=== PATIENT | female | born 1975 | race Hispanic/Latino ===

== ENCOUNTER → 2016-11-11 | Outpatient (CLI) | payer OTHER ==
--- NOTE | 2016-11-11 14:11 | Diagnostic Imaging Report ---
EXAMINATION: Bilateral diagnostic mammogram with a Computer Aided Detection (CAD) system. INDICATION: Bilateral breast pain. COMPARISON: 11/15/2015. FINDINGS: The breasts are composed of extremely dense parenchyma which would decrease mammographic sensitivity. There is an asymmetry in the upper aspect of the left breast. This was evaluated with a focal compression view which demonstrated no definite underlying lesion. No suspicious cluster of calcifications is noted. IMPRESSION: Dense breasts with no suspicious focal mass identified. The ultrasound evaluation is pending. ACR BI-RADS Category 0: Incomplete. (Needs additional imaging evaluation). Result letter will be mailed to the patient. Note: At least 10% of breast cancer is not imaged by mammography. Dictated by: Dictated on workstation # [id number]
--- NOTE | 2016-11-11 17:20 | Diagnostic Imaging Report ---
Bilateral breast ultrasound. INDICATION: Bilateral breast pain. FINDINGS: Unremarkable breast parenchyma is seen with no focal abnormality. The retroareolar region and the four quadrants of each breast were scanned. IMPRESSION: Negative study. Clinical follow-up is recommended. ACR BI-RADS Category 1: Negative. Dictated by: Dictated on workstation # [id number]
== END ==
LOC: RAD 10:24
PROVIDERS: ATTEND Nurse Practitioner Family
DX: Z12.31 Encounter for screening mammogram for malignant neoplasm of breast (principal); N64.4 Mastodynia
CPT/HCPCS: 77066

== ENCOUNTER → 2020-02-24 | Outpatient (CLI) | payer SELFPAY | LOC: CARD 10:37 | PROVIDERS: ATTEND Nurse Practitioner Family | DX: R23.0 Cyanosis (principal) | CPT/HCPCS: 93306 ==